=== PATIENT | male | born 1950 | race Caucasian/White ===

== ENCOUNTER → 2021-09-28 | Outpatient (CLI) | payer OTHER ==
--- NOTE | 2021-09-28 16:05 | Diagnostic Imaging Report ---
EXAMINATION: CT abdomen and pelvis without contrast, 09/28/2021. TECHNIQUE: Multiple contiguous axial images were obtained through the abdomen and pelvis without the use of intravenous contrast. Auto Exposure Controls were utilized during the CT exam to meet ALARA standards for radiation dose reduction. INDICATION: History of prostate carcinoma. FINDINGS: The lung bases are clear. The nonopacified liver is limited due to the lack of contrast. There is a hypodensity in the left lobe of the liver, which appears simple in appearance. Nonspecific hypodensities adjacent to the falciform ligament could represent focal fatty change. However, follow-up with contrast recommended for better characterization. The spleen is unremarkable. There is a small hiatal hernia. There is hyperplasia of the adrenal glands which are otherwise unremarkable. The pancreas is unremarkable. The appendix is normal. There is diffuse atherosclerotic disease. The kidneys are unremarkable other than vague hypodensity, somewhat small for characterization. No nephrolithiasis or hydronephrosis. No ureteral stones. There is no lymphadenopathy. Prostate gland is minimally prominent in appearance. Urinary bladder wall appears thickened and could be due to cystitis versus underdistention. Correlate with symptoms. Bilateral fat-containing inguinal hernias incidentally noted. Within the osseous structures, there is a single less than 5 mm sclerotic focus in the left ilium, which may be incidental. However, this should be followed given the history of prostate carcinoma as a small metastatic lesion is difficult to completely exclude. Remaining osseous structures demonstrate degenerative findings with no acute abnormalities. IMPRESSION: 1. Small sclerotic focus in the left ilium, nonspecific, see above discussion. 2. Incidental findings otherwise noted throughout the abdomen and pelvis with no acute process appreciated. 3. Wall thickening of the urinary bladder likely due to an incomplete distention with cystitis not excluded. Dictated by: Dictated on workstation # [id number]
--- NOTE | 2021-09-28 16:25 | Diagnostic Imaging Report ---
INDICATION: Prostate carcinoma. TECHNIQUE: Patient was administered 25.3 mCi technetium-99m MDP intravenously, and whole body imaging was performed after a three-hour delay. FINDINGS: There is uptake of activity by the axial and appendicular skeleton. There is uptake by the kidneys with excretion into the urinary bladder. There appears to be some degenerative uptake in bilateral feet. There is some degenerative uptake in the cervical spine. No suspicious foci are identified to suggest osseous metastatic disease. IMPRESSION: No scintigraphic evidence of osseous metastatic disease. Dictated by: Dictated on workstation # [id number]
== END ==
LOC: CARD 11:50
PROVIDERS: ATTEND Urology
DX: N32.89 Other specified disorders of bladder (principal); Z85.46 Personal history of malignant neoplasm of prostate
CPT/HCPCS: 74176; 78306

== ENCOUNTER 2021-11-20 09:03 | Outpatient (RCR) | payer OTHER | END 2021-11-24 | LOC: ONC 09:03 | PROVIDERS: ATTEND Radiology Radiation Oncology | DX: C61 Malignant neoplasm of prostate (principal); E78.00 Pure hypercholesterolemia, unspecified; I10 Essential (primary) hypertension | CPT/HCPCS: 76873; 99204; 99214 ==

== ENCOUNTER 2021-12-04 05:32 | Outpatient (CLI) | payer OTHER ==
[~2021-12-04] VITALS: Ht 175 cm; Wt 83.3 kg
[2021-12-06] MEDS ORDERED: LOSA100T57 PO (08:51)
[2021-12-06] MEDS ORDERED: ATOR20TA66 PO (08:51)
[2021-12-06] MEDS ORDERED: ASPI-999 PO (08:51)
[2021-12-06] MEDS ORDERED: HYDR25TA4 PO (08:51)
[2021-12-06] MEDS ORDERED: AMLO-251 PO (08:51)
[2021-12-06] MEDS ORDERED: MULT-1136 PO (08:51)
== END 2021-12-06 09:16 | disposition home or self-care (01) ==
LOC: PREOP 05:32
PROVIDERS: ATTEND Urology
DX: Z01.818 Encounter for other preprocedural examination (principal)

== ENCOUNTER 2021-12-13 06:14 | Day surgery (SDC) | payer OTHER ==
[~2021-12-13] VITALS: Ht 175 cm; Wt 83.3 kg
[2021-12-13] VITALS (11 sets, daily range): BP systolic 113–147; BP diastolic 69–105
[~2021-12-13 06:14] MED LIST: AMLO-251 PO; ASPI-999 PO; ATOR20TA66 PO; HYDR25TA4 PO; LOSA100T57 PO; MULT-1136 PO
[2021-12-13] MEDS ORDERED: LACTATED RINGERS 1,000 ML IV PRN (06:30)
[2021-12-13] MEDS ORDERED: MUPIROCIN 2% OINT 22 GM (BACTROBAN) TUBE ONE (06:52)
--- NOTE | 2021-12-13 07:17 | Progress Note-Pre Operative ---
Pre-Operative Progress Note H&P Reviewed The H&P was reviewed, patient examined and no changes noted. Date Seen by Provider: Dec 13, 2021 Time Seen by Provider: 07:16 Date H&P Reviewed: Dec 13, 2021 Time H&P Reviewed: 07:16 Pre-Operative Diagnosis: CA PROSTATE MARGARITA BUNN MD Dec 13, 2021 07:17
--- NOTE | 2021-12-13 07:18 | Progress Note-Post Operative ---
Post-Operative Progess Note Surgeon (s)/Career Services Representative (s) Surgeon MARGARITA BUNN MD, ATIF LYNCH MD Career Services Representative: NONE Pre-Operative Diagnosis CA PROSTATE Post-Operative Diagnosis SAME Procedure & Operative Findings Date of Procedure 12/13/21 Procedure Performed/Findings BRACHYTHERAPY, SPACE OAR, AND CYSTOGRAM Anesthesia Type GENERAL Estimated Blood Loss Estimated blood loss (mL): NEGLIGIBLE Specimens/Packing Specimens Removed NONE Packing: NONE MARGARITA BUNN MD Dec 13, 2021 07:18
--- NOTE | 2021-12-13 07:21 | Discharge Inst-Urology ---
Discharge Inst-Urology Reconcile Patient Problems Problems Reviewed?: Yes Final Diagnosis CA PROSTATE Patient Instructions/Follow Up Plan/Assessment/Instructions Discharge with mckinley and leg bag day time and large bag night time with instructions Come to office Saturday 9am to DC Mckinley or teach how to do it Please make appointment to been seen in office in 2 weeks. Stay off ASA for 48 hours then if no bleeding resume it Increase oral fluids for 48 hours and then as needed. Diet and Activity as tolerated. If questions or concerns contact your physician Or seek help at emergency department. MARGARITA BUNN MD Dec 13, 2021 07:21
[2021-12-13] MEDS ORDERED: fentaNYL INJ 100 MCG/2 ML AMP ONE (07:27)
[2021-12-13] MEDS ORDERED: MIDAZOLAM 2 MG/2 ML (VERSED) VIAL ONE (07:27)
[2021-12-13] MEDS ORDERED: proPOfol 200 MG/20 ML (DIPRIVAN) VIAL IV ONE (07:27)
[2021-12-13] MEDS ORDERED: LIDOCAINE PF 2% 5 ML (XYLOCAINE) VIAL ONE (07:27)
[2021-12-13] MEDS ORDERED: SEVOFLURANE (ULTANE) 15 ML INHAL SOLN ONE ×2 (07:27→08:33)
[2021-12-13] MEDS ORDERED: ONDANSETRON 4 MG/2 ML (SDV) Z0FRAN ONE (07:27)
[2021-12-13] MEDS ORDERED: IOHEXOL 300 MG/ML 30 ML (OMNIPAQUE 300) VIAL INJ ONE (08:30)
--- NOTE | 2021-12-13 08:49 | Anesthesia-General Post-Op ---
General Patient Condition Mental Status/LOC: Same as Preop Cardiovascular: Satisfactory Nausea/Vomiting: Absent Respiratory: Satisfactory Pain: Controlled Complications: Absent Post Op Complications Complications None Follow Up Care/Instructions Patient Instructions None needed. Anesthesia/Patient Condition Patient Condition Patient is doing well, no complaints, stable vital signs, no apparent adverse anesthesia problems. No complications reported per nursing. ELO CACERES CRNA Dec 13, 2021 08:49
[2021-12-13] MEDS ORDERED: ONDANSETRON 4 MG/2 ML (SDV) Z0FRAN IVP PRN (09:00)
[2021-12-13] MEDS ORDERED: morphine INJ 10 MG/ML 1ML (SYR OR VIAL) IVP ONE (09:00)
[2021-12-13] MEDS ORDERED: PROMETHAZINE INJ 25 MG/ML (PHENERGAN) AMP IVP ONE (09:00)
[2021-12-13] MEDS ORDERED: MEPERIDINE (DEMEROL) INJ 50 MG/ML IVP ONE (09:00)
--- NOTE | 2021-12-13 09:11 | Diagnostic Imaging Report ---
INDICATION: Fluoroscopy during prostate brachytherapy. FINDINGS: Fluoroscopy was provided for performance of prostate brachytherapy. 13 seconds of fluoroscopic time was utilized. A single image was obtained demonstrating multiple prostate radiation seed implants. IMPRESSION: Fluoroscopy during prostate brachytherapy. Dictated by: Dictated on workstation # [id number]
[2021-12-13] MEDS ORDERED: PHEN-640 PO (10:29)
[2021-12-13] MEDS ORDERED: KETO10TA PO (10:29)
[2021-12-13] MEDS ORDERED: CIPR-225 PO (10:29)
== END 2021-12-13 11:00 | disposition home or self-care (01) ==
LOC: SDC 06:14
PROVIDERS: ATTEND Urology
DX: C61 Malignant neoplasm of prostate (principal); I10 Essential (primary) hypertension; E78.00 Pure hypercholesterolemia, unspecified; I73.9 Peripheral vascular disease, unspecified; Z79.899 Other long term (current) drug therapy; Z79.82 Long term (current) use of aspirin
CPT/HCPCS: 76000; 76965; 77290; 77318; 77332; 77370; 77470; 77778; 87081

== ENCOUNTER 2022-01-12 09:09 | Outpatient (RCR) | payer OTHER ==
[~2022-01-12 09:09] MED LIST changes: +CIPR-225 PO; +KETO10TA PO; +PHEN-640 PO
== END 2022-01-22 | disposition home or self-care (01) ==
LOC: ONC 09:09
PROVIDERS: ATTEND Radiology Radiation Oncology
DX: Z51.0 Encounter for antineoplastic radiation therapy (principal); C61 Malignant neoplasm of prostate
CPT/HCPCS: 77290

== ENCOUNTER → 2022-02-22 | Outpatient (RCR) | payer OTHER | END | disposition home or self-care (01) | LOC: ONC 01-31 09:56 | PROVIDERS: ATTEND Radiology Radiation Oncology | DX: Z51.0 Encounter for antineoplastic radiation therapy (principal); C61 Malignant neoplasm of prostate | CPT/HCPCS: 77295; 77300; 77301; 77334; 77336; 77338; 77385 ==

== ENCOUNTER 2022-03-02 13:46 | Outpatient (RCR) | payer OTHER | END 2022-03-24 | disposition home or self-care (01) | LOC: ONC 13:46 | PROVIDERS: ATTEND Radiology Radiation Oncology | DX: Z51.0 Encounter for antineoplastic radiation therapy (principal); C61 Malignant neoplasm of prostate | CPT/HCPCS: 77336; 77385 ==

== ENCOUNTER 2022-03-21 05:28 | Outpatient (CLI) | payer OTHER ==
[~2022-03-21] VITALS: Ht 175.3 cm; Wt 86.4 kg
== END 2022-03-21 11:05 | disposition home or self-care (01) ==
LOC: PREOP 05:28
PROVIDERS: ATTEND Urology
DX: Z01.818 Encounter for other preprocedural examination (principal)

== ENCOUNTER 2022-03-28 05:58 | Day surgery (SDC) | payer OTHER ==
[2022-03-28] VITALS (10 sets, daily range): BP systolic 98–139; BP diastolic 65–94
[~2022-03-28] VITALS: Ht 175 cm; Wt 86.4 kg
[2022-03-28] MEDS ORDERED: ASPI-999 PO (06:34)
[2022-03-28] MEDS ORDERED: LACTATED RINGERS 1,000 ML IV PRN (06:45)
[2022-03-28] MEDS ORDERED: NEOSPORIN + PAIN RELIEF CREAM 15 GM ONE (06:51)
[2022-03-28] MEDS ORDERED: ONDANSETRON 4 MG/2 ML (SDV) Z0FRAN ONE (07:02)
[2022-03-28] MEDS ORDERED: LIDOCAINE PF 2% 5 ML (XYLOCAINE) VIAL ONE (07:02)
[2022-03-28] MEDS ORDERED: proPOfol 200 MG/20 ML (DIPRIVAN) VIAL IV ONE (07:02)
[2022-03-28] MEDS ORDERED: fentaNYL INJ 100 MCG/2 ML AMP ONE (07:02)
--- NOTE | 2022-03-28 07:14 | Progress Note-Pre Operative ---
Pre-Operative Progress Note H&P Reviewed The H&P was reviewed, patient examined and no changes noted. Date Seen by Provider: March 28, 2022 Time Seen by Provider: 07:14 Date H&P Reviewed: March 28, 2022 Time H&P Reviewed: 07:14 Pre-Operative Diagnosis: SEVERE MEATAL STENOSIS MARGARITA BUNN MD March 28, 2022 07:14
--- NOTE | 2022-03-28 07:20 | Progress Note-Post Operative ---
Post-Operative Progess Note Surgeon (s)/Script Supervisor (s) Surgeon MARGARITA BUNN MD Script Supervisor: NONE Pre-Operative Diagnosis SEVERE MEATAL STENOSIS Post-Operative Diagnosis SAME Procedure & Operative Findings Date of Procedure 03/28/22 Procedure Performed/Findings MEATOTOMY AND MEATOPLASTY Anesthesia Type GENERAL Estimated Blood Loss Estimated blood loss (mL): NEGLIGIBLE Specimens/Packing Specimens Removed NONE Packing: NONE MARGARITA BUNN MD March 28, 2022 07:20
--- NOTE | 2022-03-28 07:22 | Discharge Inst-Urology ---
Discharge Inst-Urology Reconcile Patient Problems Problems Reviewed?: Yes Final Diagnosis SEVERE PHIMOSIS Patient Instructions/Follow Up Plan/Assessment/Instructions Please make appointment to been seen in office in 2 weeks. Ice to penis in RR and at home for 6 hours and then PRN Wear light pants for 1 week No heavy lifting or straining for 5 days Tylenol for pain NEOSPORIN+PAIN ointment to meatus tid for 5 days Hold ASA, may resume in 72 hours if no bleeding Increase oral fluids for 48 hours and then as needed. Diet and Activity as tolerated. If questions or concerns contact your physician Or seek help at emergency department. MARGARITA BUNN MD March 28, 2022 07:22
[2022-03-28] MEDS ORDERED: SEVOFLURANE (ULTANE) 15 ML INHAL SOLN ONE (07:45)
--- NOTE | 2022-03-28 08:28 | Anesthesia-General Post-Op ---
General Patient Condition Mental Status/LOC: Same as Preop Cardiovascular: Satisfactory Nausea/Vomiting: Absent Respiratory: Satisfactory Pain: Controlled Complications: Absent Post Op Complications Complications None Follow Up Care/Instructions Patient Instructions None needed. Anesthesia/Patient Condition Patient Condition Patient is doing well, no complaints, stable vital signs, no apparent adverse anesthesia problems. KERA NERI DO March 28, 2022 08:28
--- NOTE | 2022-03-28 10:37 | OPERATIVE REPORT ---
DATE OF SERVICE: 03/28/2022 PREOPERATIVE DIAGNOSIS: Severe meatal stenosis. POSTOPERATIVE DIAGNOSIS: Severe meatal stenosis. OPERATION PERFORMED: Meatotomy with meatoplasty. SURGEON: Efren Bunn MD ANESTHESIA: General. COMPLICATIONS: None. DESCRIPTION OF PROCEDURE: Under satisfactory general anesthesia, the patient in supine position, genitalia were prepped and draped in the usual sterile fashion. A ventral meatotomy was performed and then the mucosa was approximated with a 4-0 chromic catgut in multiple areas widely opening the meatus. Neosporin plus pain ointment was applied. The patient tolerated the procedure and anesthesia well and was sent to recovery room in stable condition. Instructions were given to the . Job ID: [id number] DocumentID: [id number] Dictated Date: 03/28/2022 07:45:52 Marine Underwriter Date: 03/28/2022 10:37:00 Dictated By: EFREN BUNN MD
== END 2022-03-28 09:35 ==
LOC: SDC 05:58
PROVIDERS: ATTEND Urology
DX: N35.911 Unspecified urethral stricture, male, meatal (principal); Z87.891 Personal history of nicotine dependence
CPT/HCPCS: 87081

== ENCOUNTER 2022-04-05 10:56 | Outpatient (RCR) | payer OTHER | END 2022-04-24 | disposition home or self-care (01) | LOC: ONC 10:56 | PROVIDERS: ATTEND Radiology Radiation Oncology | DX: C61 Malignant neoplasm of prostate (principal) | CPT/HCPCS: 36415; 84153; 99213 ==